=== PATIENT | female | born 1965 | race Asian ===

== ENCOUNTER 2021-06-07 19:57 | Emergency (ER) | payer OTHER ==
[~2021-06-07] VITALS: Ht 157.5 cm; Wt 77.3 kg
[~2021-06-07 19:57] MED LIST: ASPI-825 PO; FERR1TAB85 PO; GLIP5TAB11 PO; HYDR25TA PO; METF-446 PO; MULT1TAB70 PO
[2021-06-07] MEDS ORDERED: ATOR40TA71 PO (20:06)
[2021-06-07] MEDS ORDERED: DULA0.75 SQ (20:06)
[2021-06-07] MEDS ORDERED: METF-911 PO (20:06)
[2021-06-07] MEDS ORDERED: ASPI-1444 PO (20:06)
[2021-06-07] MEDS ORDERED: LISI10TA24 PO (20:06)
[2021-06-07] MEDS ORDERED: GLIP10TA9 PO (20:06)
[2021-06-07] MEDS ORDERED: MECLIZINE HCL 25 MG TABLET PO ONE (22:30)
[2021-06-07] MEDS ORDERED: SODIUM CHLORIDE 0.9% 1,000 ML IV ONE (22:30)
[2021-06-07] MEDS ORDERED: ACETAMINOPHEN 500 MG TABLET PO ONE (22:30)
[2021-06-07] MEDS ORDERED: ONDANSETRON HCL 4 MG/2 ML VIAL IVP ONE (22:30)
[2021-06-07 22:32] LABS: BASOPHILS % (AUTO) 0.4 % (0.0-2.0); EOSINOPHILS % (AUTO) 0.1 % (1.0-6.0); HEMATOCRIT 41.4 % (36-46); HEMOGLOBIN 14.5 g/dL (12.0-16.0); LYMPHOCYTES # (AUTO) 0.9 K/uL (1.0-4.8); LYMPHOCYTES % (AUTO) 12.1 % (22.0-44.0); MEAN CORPUSCULAR HEMOGLOBIN 29.7 pg (26.0-34.0); MEAN CORPUSCULAR HGB CONC 35.2 G/dL (31.0-37.0); MEAN CORPUSCULAR VOLUME 84 fL (80-100); MONOCYTES # (AUTO) 0.4 K/uL (0.1-1.0); MONOCYTES % (AUTO) 5.8 % (2.0-9.0); NEUTROPHILS % (AUTO) 81.6 % (40.0-70.0); PLATELET COUNT (AUTO) 279 K/uL (150-450)
[2021-06-07 22:49] LABS: ANION GAP 6 mmol/L (8-16); CALCIUM, TOTAL 9.3 mg/dL (8.8-10.5); CARBON DIOXIDE 31 mmol/L (22-29); CHLORIDE 102 mmol/L (98-107); CREATININE 0.78 mg/dL (0.60-1.30); GLOMERULAR FILTR. RATE CALC > 60 mL/min (>60); GLUCOSE,RANDOM 331 mg/dL (70-110); POTASSIUM 3.9 mmol/L (3.5-5.1); SODIUM SERUM 139 mmol/L (136-145); UREA NITROGEN, BLOOD 13 mg/dL (7-18)
[2021-06-07 22:55] LABS: ALANINE AMINOTRANSFERASE 41 U/L (12-78); ALKALINE PHOSPHATASE 89 U/L (46-116); ASPARTATE AMINOTRANSFERASE 16 U/L (15-37); BILIRUBIN,TOTAL 0.5 mg/dL (0.1-1.0); TOTAL PROTEIN, SERUM 7.8 g/dL (6.4-8.2)
[2021-06-07 23:46] LABS: COVID AG,FIA SOURCE NASAL SWAB
[2021-06-08 01:20] VITALS: BP 145/74
== END 2021-06-08 01:29 | disposition home or self-care (01) ==
LOC: EMS 19:59
DX: E11.65 Type 2 diabetes mellitus with hyperglycemia (principal); R42 Dizziness and giddiness; I10 Essential (primary) hypertension; Z20.822 Contact with and (suspected) exposure to COVID-19; Z79.899 Other long term (current) drug therapy; Z79.82 Long term (current) use of aspirin
CPT/HCPCS: 36415; 80053; 84484; 85025; 87426; 93005; 96361; 96374; 99284; J2405; J7030; 99283

== ENCOUNTER 2022-02-13 07:13 | Emergency (ER) | payer OTHER ==
[~2022-02-13] VITALS: Ht 157.5 cm; Wt 75.0 kg
[~2022-02-13 07:13] MED LIST changes: +ASPI-1444 PO; -ASPI-825 PO; +ATOR40TA71 PO; +DULA0.75 SQ; -FERR1TAB85 PO; +GLIP10TA9 PO; -GLIP5TAB11 PO; -HYDR25TA PO; +LISI10TA24 PO; -METF-446 PO; +METF-81 PO; -MULT1TAB70 PO
[2022-02-13] MEDS ORDERED: GYNEVAG VG (09:07)
[2022-02-13 09:23] VITALS: BP 141/73
== END 2022-02-13 09:26 | disposition home or self-care (01) ==
LOC: EMS 07:13
DX: B37.3 Candidiasis of vulva and vagina (principal); N89.8 Other specified noninflammatory disorders of vagina; E11.9 Type 2 diabetes mellitus without complications; E78.00 Pure hypercholesterolemia, unspecified; I10 Essential (primary) hypertension; Z98.890 Other specified postprocedural states
CPT/HCPCS: 82962; 99282

== ENCOUNTER 2022-11-13 19:49 | Emergency (ER) | payer OTHER ==
[~2022-11-13] VITALS: Ht 157.5 cm; Wt 75.0 kg
[~2022-11-13 19:49] MED LIST changes: +GYNEVAG VG
[2022-11-13] MEDS ORDERED: BACITRACIN 0.9 GM PACKET OINTMENT TP ONE (21:30)
[2022-11-13] MEDS ORDERED: RABIES IMMUNE GLOBULIN/PF 300 UNITS/ML 5 ML VIAL IM. ONE (21:30)
[2022-11-13] MEDS ORDERED: AMOX TR/POT CLAV 875 MG/125 MG TABLET PO ONE (21:30)
[2022-11-13] MEDS ORDERED: RABIES VACCINE, HUMAN DIPLOID/PF 2.5 UNITS/ML VIAL IM. ONE (21:30)
[2022-11-13] MEDS ORDERED: ACETAMINOPHEN 500 MG TABLET PO ONE (21:30)
[2022-11-13] MEDS ORDERED: PERTUSS(ACELL),DIPH,TET VAC/PF 0.5 ML SYRINGE IM. ONE (21:30)
[2022-11-13] MEDS ORDERED: AMOX1TAB16 PO (21:41)
[2022-11-13 22:43] VITALS: BP 134/71
== END 2022-11-13 22:44 | disposition home or self-care (01) ==
LOC: EMS 19:50
DX: S51.852A Open bite of left forearm, initial encounter (principal); E11.9 Type 2 diabetes mellitus without complications; E78.00 Pure hypercholesterolemia, unspecified; I10 Essential (primary) hypertension; Z23 Encounter for immunization; Z98.890 Other specified postprocedural states; W55.01XA Bitten by cat, initial encounter; Y93.89 Activity, other specified; Y92.89 Other specified places as the place of occurrence of the external cause; Y99.8 Other external cause status
CPT/HCPCS: 90375; 90471; 90675; 90715; 99284

== ENCOUNTER 2023-09-04 02:12 | Emergency (ER) | payer OTHER ==
[~2023-09-04] VITALS: Ht 157.5 cm; Wt 65.9 kg
[~2023-09-04 02:12] MED LIST changes: +AMOX1TAB16 PO
[2023-09-04 03:01] LABS: BASOPHILS % (AUTO) 0.3 % (0.0-2.0); EOSINOPHILS % (AUTO) 0.6 % (1.0-6.0); HEMOGLOBIN 13.6 g/dL (12.0-16.0); LYMPHOCYTES # (AUTO) 1.7 K/uL (1.0-4.8); LYMPHOCYTES % (AUTO) 8.4 % (22.0-44.0); MEAN CORPUSCULAR HEMOGLOBIN 28.3 pg (26.0-34.0); MEAN CORPUSCULAR HGB CONC 34.9 G/dL (31.0-37.0); MEAN CORPUSCULAR VOLUME 81 fL (80-100); MONOCYTES # (AUTO) 0.5 K/uL (0.1-1.0); MONOCYTES % (AUTO) 2.5 % (2.0-9.0); NEUTROPHILS # (AUTO) 17.3 K/uL (1.8-7.7); PLATELET COUNT (AUTO) 281 K/uL (150-450); RED CELL DISTRIBUTION WIDTH 12.7 % (11.5-14.5); WHITE BLOOD COUNT (AUTO) 19.7 K/uL (4.5-11.0)
[2023-09-04 03:07] LABS: NEUTROPHILS % (AUTO) 88.2 % (40.0-70.0)
[2023-09-04 03:11] LABS: ANION GAP 11 mmol/L (8-16); CALCIUM, TOTAL 9.1 mg/dL (8.8-10.5); CARBON DIOXIDE 26 mmol/L (22-29); CHLORIDE 99 mmol/L (98-107); GLOMERULAR FILTR. RATE CALC > 60 mL/min (>60); GLUCOSE,RANDOM 377 mg/dL (70-110); POTASSIUM 3.7 mmol/L (3.5-5.1); SODIUM SERUM 136 mmol/L (136-145); UREA NITROGEN, BLOOD 11 mg/dL (7-18)
[2023-09-04 03:17] LABS: ALANINE AMINOTRANSFERASE 28 U/L (12-78); ALBUMIN 3.3 g/dL (3.4-5.0); ALKALINE PHOSPHATASE 116 U/L (46-116); ASPARTATE AMINOTRANSFERASE 13 U/L (15-37); BILIRUBIN,TOTAL 0.6 mg/dL (0.1-1.0); LIPASE 65 U/L (16-77); TOTAL PROTEIN, SERUM 7.1 g/dL (6.4-8.2)
[2023-09-04] MEDS: ONDANSETRON HCL 4 MG/2 ML VIAL IVP ONE (03:37)
[2023-09-04] MEDS: KETOROLAC TROMETHAMINE 30 MG/ML VIAL IVP ONE (03:37)
[2023-09-04] MEDS: SODIUM CHLORIDE 0.9% 1,000 ML IV ONE (03:37)
[2023-09-04 03:38] LABS: INFLUENZA A-RTPCR,COMBO NEGATIVE (NEGATIVE); INFLUENZA B-RTPCR,COMBO NEGATIVE (NEGATIVE); RESPIRATORY SYNCYTIAL VRS-PCR NEGATIVE (NEGATIVE); SARS COVID19 RTPCR, COMBO NEGATIVE (NEGATIVE)
[2023-09-04] MEDS ORDERED: SODIUM CHLORIDE 0.9% 100 ML ONE (04:00)
[2023-09-04] MEDS ORDERED: IOHEXOL 350 MG/ML 100 ML VIAL ONE (04:00)
[2023-09-04 04:47] LABS: LACTIC ACID 0.6 mmol/L (0.4-2.0)
[2023-09-04 05:23] VITALS: TEMP 98.9
[2023-09-04 05:34] LABS: APPEARANCE,URINE CLEAR (CLEAR); BILIRUBIN,URINE NEGATIVE (NEGATIVE); COLOR,URINE LIGHT YELLOW (YELLOW); GLUCOSE, URINE (UA) >=1000 mg/dL (NEGATIVE); LEUKOCYTE ESTERASE ,URINE TRACE (NEGATIVE); NITRATE,URINE POSITIVE (NEGATIVE); OCCULT BLOOD,URINE NEGATIVE (NEGATIVE); PH,URINE 5.5 (5.0-8.0); PROTEIN,URINE NEGATIVE (NEGATIVE); UROBILINOGEN,URINE <=1.0 mg/dL (<=1.0)
[2023-09-04 05:49] LABS: BACTERIA,URINE Few /HPF (None Seen); RBC,URINE None Seen /HPF (0-2); SQUAMOUS EPITHELIAL CELL,UR None Seen /LPF (None Seen)
[2023-09-04] MEDS: CEPHALEXIN MONOHYDRATE 500 MG CAPSULE PO ONE (06:56)
[2023-09-04] MEDS: FAMOTIDINE 20 MG/2 ML VIAL IVP ONE (08:33)
[2023-09-04] MEDS ORDERED: CEPH-558 PO (09:44)
[2023-09-04 09:54] VITALS: BP 118/64; PULSE 91; RESP 16
== END 2023-09-04 09:56 | disposition home or self-care (01) ==
LOC: EMS 02:12
DX: N39.0 Urinary tract infection, site not specified (principal); R10.84 Generalized abdominal pain; Z98.890 Other specified postprocedural states; Z20.822 Contact with and (suspected) exposure to COVID-19
CPT/HCPCS: 99285; 74177; 96374; 0241U; 76705; 71045; 96375; 96361; 80053; 81001; 83605; 83690; 85025; 87040; 36415; J3490; J1885; J2405; Q9967; J7030; J7050

== ENCOUNTER 2025-05-18 04:33 | Emergency (ER) | payer OTHER ==
[~2025-05-18] VITALS: Ht 157.5 cm; Wt 72.7 kg
[~2025-05-18 04:33] MED LIST changes: +AMOX-457 PO; -AMOX1TAB16 PO; +CEPH-558 PO; +GLIP10TA16 PO; -GLIP10TA9 PO
[2025-05-18 04:39] VITALS: TEMP 97.9
[2025-05-18 05:06] LABS: PLATELET COUNT (AUTO) 273 K/uL (150-450); RED BLOOD CELL COUNT(AUTO) 5.21 MIL/uL (4.00-5.20); RED CELL DISTRIBUTION WIDTH 13.0 % (11.5-14.5); WHITE BLOOD COUNT (AUTO) 4.5 K/uL (4.5-11.0)
[2025-05-18] MEDS ORDERED: IOHEXOL 350 MG/ML 100 ML VIAL ONE (05:09)
[2025-05-18] MEDS ORDERED: SODIUM CHLORIDE 0.9% 100 ML ONE (05:09)
[2025-05-18] MEDS: ASPIRIN 325 MG TABLET PO ONE (05:20)
[2025-05-18] MEDS: CLOPIDOGREL BISULFATE 300 MG TABLET PO ONE (05:20)
[2025-05-18 05:21] LABS: CALCIUM, TOTAL 9.3 mg/dL (8.8-10.5); CREATININE 0.65 mg/dL (0.60-1.30); GLOMERULAR FILTR. RATE CALC > 60 mL/min (>60); GLUCOSE,RANDOM 343 mg/dL (70-110); SODIUM SERUM 137 mmol/L (136-145); TROPONIN I-HIGH SENSITIVITY 7 ng/L (<51); UREA NITROGEN, BLOOD 11 mg/dL (7-18)
[2025-05-18 05:26] LABS: ASPARTATE AMINOTRANSFERASE 15 U/L (15-37); CHOL/HDL RATIO 3.8 (3.9-5.7); LDL CHOL (CALC.) 116 mg/dL (0-130); TOTAL PROTEIN, SERUM 7.6 g/dL (6.4-8.2)
[2025-05-18] MEDS: INSULIN REGULAR, HUMAN 100 UNITS/ML IVP ONE (06:16)
[2025-05-18] MEDS: SODIUM CHLORIDE 0.9% 1,000 ML IV ONE (06:18)
[2025-05-18] MEDS ORDERED: LABETALOL HCL 5 MG/ML 20 ML VIAL IVP PRN (06:30)
[2025-05-18] MEDS ORDERED: ONDANSETRON HCL 4 MG/2 ML VIAL IVP PRN (06:30)
[2025-05-18] MEDS ORDERED: ACETAMINOPHEN 325 MG TABLET PO PRN (06:30)
[2025-05-18] MEDS: ASPIRIN 81 MG CHEWABLE TABLET PO ONE (06:45)
[2025-05-18 07:05] LABS: GLUCOMETER DEV NAME(LOC) ER.7; GLUCOSE,POINT OF CARE 211 MG/DL (70-110)
[2025-05-18] MEDS: HEPARIN SODIUM,PORCINE 5,000 UNITS/ML VIAL SQ SCH (08:00)
[2025-05-18] MEDS ORDERED: CLOPIDOGREL BISULFATE 75 MG TABLET PO SCH (09:00)
[2025-05-18] MEDS: DOCUSATE SODIUM 100 MG CAPSULE PO SCH (09:00)
[2025-05-18 10:30] VITALS: BP 140/72; PULSE 76; RESP 16; O2SAT 99
[2025-05-18] MEDS ORDERED: ATORVASTATIN CALCIUM 40 MG TABLET PO SCH (21:00)
[2025-05-18] MEDS ORDERED: INSULIN LISPRO 100 UNITS/ML SQ PRN (22:00)
[2025-05-18] MEDS ORDERED: DEXTROSE 50%-WATER 25 GM/50 ML SYRINGE IVP PRN (22:00)
[2025-05-19] MEDS ORDERED: ASPIRIN 81 MG CHEWABLE TABLET PO SCH (09:00)
[2025-05-19] MEDS ORDERED: CLOPIDOGREL BISULFATE 75 MG TABLET PO SCH (09:00)
== END 2025-05-18 10:34 | disposition admitted as inpatient to this hospital (09) ==
LOC: EMS 04:33 → UNDOADMIN 06:22 → EDH 06:22 → EDBEDREQ 06:31
DX: R20.0 Anesthesia of skin (principal); R42 Dizziness and giddiness; E11.9 Type 2 diabetes mellitus without complications; I63.9 Cerebral infarction, unspecified; Z98.890 Other specified postprocedural states; Z79.899 Other long term (current) drug therapy
CPT/HCPCS: 99291; 70496; 70551; 96374; 96361; 71045; 80061; 80053; 82962; 83036; 84484; 85025; 85610; 85730; 86850; 86900; 86901; 36415; 70498; 93005; 70450; Q9967; J1815; J7030; J7050; 82948; G0378